=== PATIENT | male | born 1975 | race Caucasian/White ===

== ENCOUNTER 2019-02-23 05:34 | Emergency (ER) | payer BC, SELFPAY ==
[2019-02-23 05:45] VITALS: BP 148/99; PULSE 93; RESP 19; TEMP 36.6; O2SAT 97; BMI 33.1
--- NOTE | 2019-02-23 05:51 | ED.GENADULT ---
HPI - General Adult General Chief complaint: Extremity Injury, Upper Stated complaint: left arm pain post injection, nausea Time Seen by Provider: 02/23/19 05:42 Source: patient Mode of arrival: Family Vehicle Limitations: no limitations History of Present Illness HPI narrative: 43-year-old male here for evaluation of pain in his left shoulder. He states that 1 week ago he injected himself with testosterone. He does give himself weekly testosterone injections. This is prescribed by provider and is medications that he has obtained from a pharmacy. Since that time he has had pain in his left shoulder especially with movement. No fevers. Was concerned about a potential infection. Also woke up this morning feeling somewhat nauseous and has not slept fall because he can't lie on his left side Related Data Allergies Allergy/AdvReac Type Severity Reaction Status Date / Time Penicillins Allergy Rash Verified 02/23/19 05:45 Review of Systems Constitutional Constitutional: Denies fever(s) Cardiovascular Cardiovascular: Denies chest pain Musculoskeletal Musculoskeletal: Denies tingling Comments: Left shoulder pain Integumentary/Breasts Skin/Breast: Denies lesions and Denies rash Neurologic Neurologic: Denies tingling and Denies paresthesias Hematologic/Lymphatic Hematologic/Lymphatic: Denies easy bleeding and Denies easy bruising Patient History Medical History Low testosterone in male (Acute) Social History Smoking Status: Never smoker Smoking Status: Never smoker alcohol intake frequency: a few times a month Substance Use Type: does not use Exam Initial Vital Signs Initial Vital Signs: Vital Signs Temperature 97.8 F 02/23/19 05:45 Pulse Rate 93 H 02/23/19 05:45 Respiratory Rate 19 02/23/19 05:45 Blood Pressure 148/99 H 02/23/19 05:45 Pulse Oximetry 97 02/23/19 05:45 Neck Neck: normal visual inspection Resp Effort & Inspection: normal respiratory effort Cardio Rate: regular rate Pulses: radial pulses present on the left Skin Lesions: no lesions Rashes: no rashes Neuro Cognition: normal cognition Speech: speech normal Sensory Exam: no sensory deficits noted Extrem General: normal to inspection and capillary refill normal Other: Patient does have somewhat more fullness in the left deltoid compared to the right. Left elbow left wrist unremarkable. He can move his left shoulder however does have some pain with abduction Course Vital Signs Vital signs: Vital Signs - 8 hr 02/23/19 05:45 Temperature 97.8 F Pulse Rate 93 H Respiratory Rate 19 Blood Pressure 148/99 H Pulse Oximetry 97 Medical Decision Making MDM Narrative Medical decision making narrative: Skin over top the area looks well. He can move his shoulder. Low suspicion for septic joint. Bedside ultrasound does not show any deep space infection. He is neurovascularly intact. I do suspect this is just a deep bruise from the injections a. No indication for antibiotics. We discussed return precautions and follow-up instructions. He expressed understanding and agreement with plan. Discharge Plan Departure Patient Disposition: Home Clinical Impression: Left shoulder pain Qualifiers: Chronicity: acute Qualified Code(s): M25.512 - Pain in left shoulder Instructions: How To Perform RICE (Rest, Ice, Compress, Elevate) Activity Restrictions/Additional Instructions: You have no restrictions on any of your activities. I do recommend that you move your left deltoid like we discussed. Return to the emergency department for any new or worsening symptoms
== END 2019-02-23 06:03 | disposition home or self-care (01) ==
PROVIDERS: Emergency Provider Emergency Medicine
DX: M25.512 Pain in left shoulder (principal)
CPT/HCPCS: 99282

== ENCOUNTER 2023-11-07 08:30 | Emergency (ER) | payer BC, SELFPAY ==
[2023-11-07] VITALS (12 sets, daily range): BP systolic 111–153; BP diastolic 62–85; PULSE 70–86; RESP 16–23; TEMP 36.6; O2SAT 95–97
--- NOTE | 2023-11-07 08:41 | EKG_ITS ---
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
--- NOTE | 2023-11-07 08:43 | DI.RAD.S_ITS ---
PROCEDURE: XR CHEST 1V INDICATIONS: rib pain TECHNIQUE: One view of the chest was acquired. COMPARISON: None. FINDINGS: Surgical changes and devices: None. Lungs and pleura: Submaximal inspiration with patchy bibasilar atelectasis. No pleural effusions or pneumothorax. Mediastinum: Mediastinal contours appear normal. Heart size is normal. Bones and chest wall: No suspicious bony lesions. Overlying soft tissues appear unremarkable. IMPRESSION: Patchy bibasilar atelectasis. No displaced rib fracture noted. Dictated by: Aubrey Cowart M.D. on 11/07/2023 at 9:56 Approved by: Aubrey Cowart M.D. on 11/07/2023 at 9:57
[2023-11-07 08:53] LABS: Add Manual Diff / Slide Review NO; Basophils Absolute Auto 0 /uL (0-100); Basophils Percent Auto 1.2 % (0-2); Eosinophils Absolute Auto 0 /uL (0-450); Eosinophils Percent Auto 1.4 % (2-4); Hematocrit 34.3 % (41-53); Hemoglobin 11.7 g/dL (13.5-17.5); Lymphocytes Absolute Auto 600 /uL (1100-4500); Lymphocytes Percent Auto 26.7 % (25-40); Mean Corpuscular HGB Conc 34.1 % (30-36); Mean Corpuscular Hemoglobin 28.9 PG (26-34); Mean Corpuscular Volume 84.7 fL (80-100); Monocytes Absolute Auto 500 /uL (0-900); Monocytes Percent Auto 19.3 % (3-14); Neutrophils Absolute Auto 1200 /uL (1500-7000); Neutrophils Percent Auto 51.4 % (50-75); Platelet Count 106 X10^3/uL (150-400); Red Blood Cell Count 4.04 X10^6/uL (4.5-5.9); Red Cell Distribution Width 14.2 % (11.6-14.8); White Blood Cell Count 2.4 X10^3/uL (4.5-11.0)
--- NOTE | 2023-11-07 08:53 | ED.ABDPAIN ---
HPI - Abdominal Pain General Chief Complaint: Abdominal Pain Stated Complaint: sharp rib pain L side Time Seen by Provider: 11/07/23 08:38 Source: patient Mode of arrival: Ambulatory History of Present Illness HPI narrative: 48-year-old male with 1 week duration left upper quadrant abdominal pain, worse with movement and deep breathing, was back packing recent days, some twisting motions lifting on and off his back pack, no fall or other trauma or new activities, has had history of kidney stones in the past but this feels different. He does not seem to have flank area discomfort like he did with his previous kidney stones, left upper quadrant discomfort. No nausea or vomiting. No black or red stools. No loose stools. Last bowel movement yesterday unremarkable without change in caliber, no black or red color, no mucoid color. No painful urination or frequency of urination, though urine might be somewhat darker. No skin rash changes in area of discomfort. He denies cough shortness of breath. Related Data Home Medications Medication Instructions Recorded Confirmed losartan 50 mg tablet 50 mg PO DAILY 11/07/23 11/07/23 Allergies Allergy/AdvReac Type Severity Reaction Status Date / Time Penicillins Allergy Rash Verified 11/07/23 08:54 Review of Systems Review of Systems Narrative: see HPI Patient History Medical History (Updated 11/07/23 @ 12:17 by Hugo Sahu MD) Low testosterone in male Social History Smoking Status: Never smoker Smoking Status: Never smoker alcohol intake frequency: other Substance Use Type: marijuana Exam Narrative Exam Narrative: GENERAL: Well-developed patient, in mild distress. HEAD: Atraumatic. Normocephalic. EYES: Pupils equal round and reactive. Extraocular motions intact. No scleral icterus. No injection or drainage. ENT: Nose without bleeding, purulent drainage. Throat without erythema, tonsillar hypertrophy or exudate. Airway patent. NECK: Trachea midline. Non tender CARDIOVASCULAR: Regular rate and rhythm without murmurs, gallops, or rubs. RESPIRATORY: Clear to auscultation. Breath sounds equal bilaterally. No wheezes, rales, or rhonchi. GASTROINTESTINAL: Abdomen soft, non-tender, nondistended. EXTREMITIES: No edema or joint tenderness. BACK: Nontender without deformity or crepitance. No flank tenderness. NEURO: AOx3. SKIN: No rash or erythema of visible areas Initial Vital Signs Initial Vital Signs: Vital Signs Pulse Rate 86 11/07/23 08:35 Blood Pressure 153/85 H 11/07/23 08:35 Pulse Oximetry 96 11/07/23 08:35 Course Orders Ordered: Discontinued Medications Sodium Chloride (Normal Saline 0.9%) 1,000 mls @ 500 mls/hr IV BOLUS ONE Stop: 11/07/23 11:07 Last Infusion: 11/07/23 11:52 Dose: Infused Documented By: Infusion: 11/07/23 09:52 Dose: 500 mls/hr Documented By: Infusion: 11/07/23 09:36 Dose: 0 mls/hr Documented By: Admin: 11/07/23 09:20 Dose: 500 mls/hr Documented By: SHILOH Ketorolac Tromethamine (Ketorolac 30 Mg/Ml Vial) 15 mg IV NOW ONE Stop: 11/07/23 09:09 Last Admin: 11/07/23 09:20 Dose: 15 mg Documented By: SHILOH Ondansetron HCl (Ondansetron 4 Mg/2 Ml Inj) 4 mg IV NOW PRN PRN Reason: Nausea And Vomiting Last Admin: 11/07/23 09:20 Dose: 4 mg Documented By: SHILOH Ondansetron HCl (Ondansetron 4 Mg Odt) 4 mg PO NOW PRN PRN Reason: Nausea And Vomiting Vital Signs Vital signs: Vital Signs - 8 hr 11/07/23 12:30 11/07/23 12:30 Pulse Rate 76 Respiratory Rate 19 Blood Pressure 130/75 Pulse Oximetry 97 MDM - Abdominal Pain Lab Data Attestation: I reviewed the patient's lab results. 11/07/23 08:40 11/07/23 08:40 Labs: Lab Results 11/07/23 11/07/23 Range/Units 08:40 08:45 WBC 2.4 L (4.5-11.0) X10^3/uL RBC 4.04 L (4.5-5.9) X10^6/uL Hgb 11.7 L (13.5-17.5) g/dL Hct 34.3 L (41-53) % MCV 84.7 (80-100) fL MCH 28.9 (26-34) PG MCHC 34.1 (30-36) % RDW 14.2 (11.6-14.8) % Plt Count 106 L (150-400) X10^3/uL Neut % (Auto) 51.4 (50-75) % Lymph % (Auto) 26.7 (25-40) % [place] % (Auto) 19.3 H (3-14) % Eos % (Auto) 1.4 L (2-4) % Baso % (Auto) 1.2 (0-2) % Neut # (Auto) 1200 L (4576-0521) /uL Lymph # (Auto) 600 L (0628-5316) /uL [place] # (Auto) 500 (0-900) /uL Eos # (Auto) 0 (0-450) /uL Baso # (Auto) 0 (0-100) /uL Sodium 135 L (137-145) mmol/L Potassium 3.9 (3.4-5.1) mmol/L Chloride 102 (98-107) mmol/L Carbon Dioxide 25 (22-32) mmol/L BUN 15 (9-20) mg/dL Creatinine 0.89 (0.66-1.25) mg/dL Estimated GFR > 60 (>60) mL/min BUN/Creatinine Ratio 16.9 (6-22) Glucose 104 H (70-100) mg/dL Calcium 9.0 (8.4-10.2) mg/dL Total Bilirubin 2.2 H (0.2-1.3) mg/dL AST 278 H (17-59) IU/L ALT 308 H (<50) IU/L Alkaline Phosphatase 345 H (38-126) U/L Total Creatine Kinase 34 L (55-170) U/L Troponin I < 0.012 (0.01-0.034) ng/mL Total Protein 6.9 (6.3-8.2) g/dL Albumin 4.2 (3.5-5.0) g/dL Globulin 2.7 (1.7-4.1) g/dL Albumin/Globulin Ratio 1.6 (1.0-2.8) Lipase 92 (23-300) U/L SARS-CoV-2 (PCR) Negative (Negative) Influenza A (RT-PCR) Flu a negative (NEGATIVE) Influenza B (RT-PCR) Flu b negative (NEGATIVE) RSV (PCR) Negative (Negative) Imaging Data Chest x-ray: Radiologist's Impression: [address] [address] XRay Report Signed Patient: Hugo Ball MR#: [id number] : 1975 Acct:[id number] Age/Sex: 48 / M Date of Service: 11/07/23 Loc: ED Accession Number: [id number] Procedure: XR chest 1V Ordering Provider: Hugo Sahu MD PROCEDURE: XR CHEST 1V INDICATIONS: rib pain TECHNIQUE: One view of the chest was acquired. COMPARISON: None. FINDINGS: Surgical changes and devices: None. Lungs and pleura: Submaximal inspiration with patchy bibasilar atelectasis. No pleural effusions or pneumothorax. Mediastinum: Mediastinal contours appear normal. Heart size is normal. Bones and chest wall: No suspicious bony lesions. Overlying soft tissues appear unremarkable. IMPRESSION: Patchy bibasilar atelectasis. No displaced rib fracture noted. Dictated by: Aubrey Cowart M.D. on 11/07/2023 at 9:56 Approved by: Aubrey Cowart M.D. on 11/07/2023 at 9:57 CT scan - abdomen/pelvis: Radiologist's Impression: [address] [address] [address] Scan Report Signed Patient: Hugo Ball MR#: [id number] : 1975 Acct:[id number] Age/Sex: 48 / M Date of Service: 11/07/23 Loc: ED Accession Number: [id number] Procedure: CT abdomen pelvis w con Ordering Provider: Hugo Sahu MD PROCEDURE: CT ABDOMEN PELVIS W CON INDICATIONS: Left upper quadrant pain TECHNIQUE: After the administration of intravenous contrast, axial sections acquired from the lung bases to the pubic symphysis. Coronal and sagittal reformats were performed. For radiation dose reduction, the following was used: automated exposure control, adjustment of mA and/or kV according to patient size. COMPARISON: None. FINDINGS: Image quality: Diagnostic. Lower Chest: There is a small right cardiophrenic lymph node. Heart size is within normal limits and lung bases are clear. ABDOMEN: Liver: No solid mass. Very mild diffuse hepatic steatosis. No hepatomegaly. Gallbladder: No radiopaque gallstones or wall thickening. Biliary ducts: No biliary dilation. Pancreas: No ductal dilation. Spleen: Marked splenomegaly. Spleen measures 23.3 cm in craniocaudal dimension. Adrenal Glands: No adrenal nodules. Kidneys and Ureters: No hydronephrosis. No solid mass. No complex renal cystic lesion which requires follow up. Stomach and Bowel: Normal colonic caliber, without significant wall thickening. Peritoneum: No abnormal intraperitoneal fluid. No free air. Ventral Wall: No significant ventral hernia. Abdominal Nodes: There is periportal adenopathy. For instance, there is a periportal lymph node on image 38 of series 2 which measures 2.6 x 1.6 cm. Periportal adenopathy is nonspecific. There are mildly prominent left gastric lymph nodes. For instance, a left gastric lymph node on image 28 of series 2 measures 1.4 x 1.0 cm. There are small shotty periaortic lymph nodes without abnormally sized lymph nodes noted. No pelvic adenopathy or inguinal adenopathy. Vessels: Aorta and inferior vena cava are normal in size. PELVIS: Pelvic Organs: Unremarkable. Bladder: No bladder wall thickening, accounting for underdistention. Pelvic Nodes: No enlarged lymph nodes. Miscellaneous: No inguinal hernias are seen. Bones: No aggressive osseous abnormality. IMPRESSION: 1. Marked splenomegaly, prominent periportal, left gastric, and right cardiophrenic lymph nodes. Comment: Consider lymphoma. Consider other etiologies of splenomegaly. Dictated by: Aubrey Cowart M.D. on 11/07/2023 at 10:47 Approved by: Aubrey Cowart M.D. on 11/07/2023 at 10:55 ECG Data Attestation: I personally reviewed and interpreted this ECG as follows: Interpretation: Normal sinus rhythm with rate 81, no obvious ST segment elevation or depression symptoms. T-wave flattening lead 3 noted. [place] 156, QRS 100, QTC 441. MDM Narrative Medical decision making narrative: 48-year-old male with 1 week duration left upper quadrant abdominal pain, history of kidney stones but he feels this is different, recent back packing possible twisting and like motions, no significant tenderness to left upper quadrant on exam however. DDx consider left ureteral stone, UTI/pyelo, colitis, diverticulitis, abdominal wall strain, early zoster, lower lobe pneumonia, pulmonary embolus, other. IV Toradol. He declines opiate pain medications for now. Screening single-view x-ray with left elevated hemidiaphragm, not obviously showing any infiltrates, none for comparison. Labs pending. Anticipate CT abdomen and pelvis imaging. Chest x-ray unremarkable. CT abdomen and pelvis shows splenomegaly, also multiple lymph nodes in the chest and abdomen, para aortic and other, suspicious for lymphoma. See radiology report. Copy of report given to patient. Discussion with patient, concern for possible lymphoma Attempted to reach PCP Dr. Doll to inform of diagnosis and to help expedite outpatient workup, no response. Patient to call his office. Discharged home. Return precautions discussed Critical Care Time Critical Care Time Critical Care Time: Yes Total Critical Care Time: 31 Attestation: The high probability of a clinically significant, sudden or life threatening deterioration of the [cardiopulmonary, abdominopelvic, lymphatic, hematologic, genitourinary] system(s) required my full and direct attention, intervention and personal management. The aggregate critical care time was [31] minutes. This time is in addition to time spent performing reported procedures but includes the following: [x] Data Review and interpretation [x] Patient assessment and monitoring of vital signs [x] Documentation [x] Medication orders and management Discharge Plan Departure Patient Disposition: Home Clinical Impression: Abdominal pain, Splenomegaly, Lymphadenopathy, Leukopenia, Abnormal liver function tests Instructions: DI for Abdominal Pain-Adult Activity Restrictions/Additional Instructions: Left upper quadrant abdominal pain without obvious known trauma. Screening labs showed mildly decreased white blood cell count, increased liver function tests. CT scanning of the abdomen and pelvis showed an enlarged spleen in the left upper quadrant that might be explaining your area of symptoms. There is also quite a few enlarged lymph nodes in the chest abdomen and pelvic regions. Findings in pattern is concerning for some type of lymphoma. Follow up as an outpatient to coordinate possible lymph node biopsy, to help confirm or exclude the diagnosis. Follow up with your provider to coordinate further workup as an outpatient. Return to this/nearest emergency department for any change worsening symptoms or any concerns prior We attempted to reach your primary provider Dr. Doll, no response. Please call the office of your primary care provider to expedite further workup as an outpatient Prescriptions: No Action losartan 50 mg tablet 50 mg PO DAILY Referrals: Gretchen Doll MD [Non-Staff] - Stand Alone Forms: Patient Portal/API
--- NOTE | 2023-11-07 09:07 | DI.CT.S_ITS ---
PROCEDURE: CT ABDOMEN PELVIS W CON INDICATIONS: Left upper quadrant pain TECHNIQUE: After the administration of intravenous contrast, axial sections acquired from the lung bases to the pubic symphysis. Coronal and sagittal reformats were performed. For radiation dose reduction, the following was used: automated exposure control, adjustment of mA and/or kV according to patient size. COMPARISON: None. FINDINGS: Image quality: Diagnostic. Lower Chest: There is a small right cardiophrenic lymph node. Heart size is within normal limits and lung bases are clear. ABDOMEN: Liver: No solid mass. Very mild diffuse hepatic steatosis. No hepatomegaly. Gallbladder: No radiopaque gallstones or wall thickening. Biliary ducts: No biliary dilation. Pancreas: No ductal dilation. Spleen: Marked splenomegaly. Spleen measures 23.3 cm in craniocaudal dimension. Adrenal Glands: No adrenal nodules. Kidneys and Ureters: No hydronephrosis. No solid mass. No complex renal cystic lesion which requires follow up. Stomach and Bowel: Normal colonic caliber, without significant wall thickening. Peritoneum: No abnormal intraperitoneal fluid. No free air. Ventral Wall: No significant ventral hernia. Abdominal Nodes: There is periportal adenopathy. For instance, there is a periportal lymph node on image 38 of series 2 which measures 2.6 x 1.6 cm. Periportal adenopathy is nonspecific. There are mildly prominent left gastric lymph nodes. For instance, a left gastric lymph node on image 28 of series 2 measures 1.4 x 1.0 cm. There are small shotty periaortic lymph nodes without abnormally sized lymph nodes noted. No pelvic adenopathy or inguinal adenopathy. Vessels: Aorta and inferior vena cava are normal in size. PELVIS: Pelvic Organs: Unremarkable. Bladder: No bladder wall thickening, accounting for underdistention. Pelvic Nodes: No enlarged lymph nodes. Miscellaneous: No inguinal hernias are seen. Bones: No aggressive osseous abnormality. IMPRESSION: 1. Marked splenomegaly, prominent periportal, left gastric, and right cardiophrenic lymph nodes. Comment: Consider lymphoma. Consider other etiologies of splenomegaly. Dictated by: Aubrey Cowart M.D. on 11/07/2023 at 10:47 Approved by: Aubrey Cowart M.D. on 11/07/2023 at 10:55
[2023-11-07 09:10] LABS: Alanine Aminotransferase 308 IU/L (<50); Albumin 4.2 g/dL (3.5-5.0); Albumin Globulin Ratio 1.6 (1.0-2.8); Alkaline Phosphatase 345 U/L (38-126); Aspartate Aminotransferase 278 IU/L (17-59); BUN Creatinine Ratio 16.9 (6-22); Bilirubin Total 2.2 mg/dL (0.2-1.3); Blood Urea Nitrogen 15 mg/dL (9-20); Carbon Dioxide 25 mmol/L (22-32); Chloride 102 mmol/L (98-107); Creatine Kinase 34 U/L (55-170); Estimated Glomerular Filt Rate > 60 mL/min (>60); Globulin 2.7 g/dL (1.7-4.1); Glucose 104 mg/dL (70-100); HEMOLYSIS < 15 (0-50); Lipase 92 U/L (23-300); Potassium 3.9 mmol/L (3.4-5.1); Sodium 135 mmol/L (137-145); Total Protein 6.9 g/dL (6.3-8.2)
[2023-11-07] MEDS: SODIUM CHLORIDE 0.9% 1,000 ML 500 ML IV (09:20)
[2023-11-07] MEDS: KETOROLAC 30 MG/ML VIAL 15 MG IV (09:20)
[2023-11-07] MEDS: ONDANSETRON 4 MG/2 ML INJ IV (09:20)
[2023-11-07 09:22] LABS: Troponin I < 0.012 ng/mL (0.01-0.034)
[2023-11-07 10:10] LABS: Influenza A - CEPHEID Flu A NEGATIVE (NEGATIVE); Influenza B - CEPHEID Flu B NEGATIVE (NEGATIVE); Respiratory Syncytial Virus Negative (Negative)
[2023-11-07 10:11] LABS: COVID-19 CEPHEID 4-PLEX PCR Negative (Negative)
== END 2023-11-07 12:48 | disposition home or self-care (01) ==
PROVIDERS: Emergency Provider Emergency Medicine
DX: R10.12 Left upper quadrant pain (principal); R07.81 Pleurodynia; R16.1 Splenomegaly, not elsewhere classified; R59.1 Generalized enlarged lymph nodes; D72.819 Decreased white blood cell count, unspecified; R79.89 Other specified abnormal findings of blood chemistry
CPT/HCPCS: 0241U; 36415; 71045; 74177; 80053; 82550; 83690; 84484; 85025; 93005; 96361; 96374; 96375; 99284; J1885; J2405; Q9967